=== PATIENT | male | born 1975 | race Caucasian/White ===

== ENCOUNTER 2017-07-09 18:51 | Emergency (ER) | payer OTHER ==
[~2017-07-09] VITALS: Ht 180.3 cm; Wt 105.9 kg
[~2017-07-09 18:51] MED LIST: ACETAMINOPHEN-1 EAC1 PO; AMBIEN10 MG PO; AMLODIPINE BESYL5 MG PO; AMOX TR-K CLV1 EAC4 PO; AUGMENTIN500 MG PO; BACTRIM,SEPT1 TABLET PO; BACTRIM,SEPTRA S1 ML PO; CHILDREN'S MOT120 M2 PO; CHILDREN'S160 MG/22 PO; Children's Advil PO; DURICEF500 MG/5 M PO; GLIPIZIDE10 MG PO; Glucophage PO; Glucotrol PO; KEFLEX500 MG PO; KLONOPIN0.5 M1 PO; Keflex PO; LANTUS 3 M100 UNITS1 SC; LANTUS SOLOSTAR SQ; LEVAQUIN750 MG PO; LISINOPRIL5 MG PO; MILLIPRED DP5 MG PO; NAPROSYN500 MG PO; NOHOMEMEDS; NORCO 5/3251 TABLET PO; NOVOLOG PE100 UNITS/ SC; PEN-VEE K,VEET500 MG PO; Percocet 5/325,Endoc PO; TYLENOL EXTRA500 MG PO; Tylenol Extra Streng PO; VENTOLIN HFA18 GM IH; ZESTRIL10 MG PO; Zestril,Prinivil PO
[2017-07-09 19:28] LABS: BASOPHIL (%) 0.8 % (0-1); CARBON DIOXIDE (BICARBONATE) 26.8 MEQ/L (20-31); EOSINOPHIL (%) 1.6 % (0-5); EOSINOPHIL COUNT 0.1 K/uL (0-0.3); HEMOGLOBIN 15.4 G/DL (12.5-16.6); IMMATURE GRANULOCYTE (%) 0.2 % (0.0-0.7); LYMPHOCYTE (%) 39.5 % (15-42); MCH 30.1 PG (29.0-34.0); MCHC 36.7 G/DL (30.0-36.0); MCV 82.2 FL (86-99); MONOCYTE (%) 5.5 % (3-12); MONOCYTE COUNT 0.3 K/uL (0-0.8); NEUTROPHIL (%) 52.4 % (45-76); NEUTROPHIL COUNT 2.6 K/uL (1.8-6.4); PLATELET COUNT 189 K/uL (156-360); RBC DIS.WIDTH-CV 12.2 % (11.8-14.6); RBC DIS.WIDTH-SD 36.9 % (39-53); RED BLOOD COUNT 5.11 M/uL (4.00-5.50); WHITE BLOOD COUNT 4.9 K/uL (4.1-10.2)
[2017-07-09 19:36] LABS: ALBUMIN 4.2 g/dL (3.2-4.8); CHLORIDE 95 mEq/L (99-109); POTASSIUM 4.5 mEq/L (3.7-5.4); SODIUM 127 mEq/L (136-147)
[2017-07-09 19:38] LABS: TOTAL PROTEIN 7.3 g/dL (6.4-8.3)
[2017-07-09 19:40] LABS: TOTAL BILIRUBIN 0.7 mg/dL (0.0-1.0)
[2017-07-09 19:42] LABS: ALKALINE PHOSPHATASE 100 IU/L (3-129); CREATININE 1.4 mg/dL (0.6-1.3); GFR ESTIMATE (CALCULATED) > 59 mL/min/ (58.99-99999)
[2017-07-09 19:43] LABS: UREA NITROGEN (BUN) 15 mg/dL (9-23)
[2017-07-09 19:44] LABS: AST (GOT) 15 IU/L (2-34)
[2017-07-09 19:45] LABS: ALT (GPT) 24 IU/L (3-49)
[2017-07-09 19:48] LABS: GLUCOSE 761 mg/dL (70-99)
[2017-07-09 20:10] LABS: APPEARANCE CLEAR ((CLEAR)); BILIRUBIN NEGATIVE; BLOOD SMALL; COLOR COLORLESS ((YELLOW)); GLUCOSE (STRIP) >=500; KETONES NEGATIVE; LEUKOCYTES NEGATIVE; NITRITE NEGATIVE; PROTEIN (STRIP) NEGATIVE; SPECIFIC GRAVITY 1.027 (1.000-1.030); UROBILINOGEN 0.2 MG/DL (0.2-1.0)
[2017-07-09 20:13] LABS: BACTERIA NONE SEEN /HPF; EPITHELIAL CELLS RARE /HPF; MUCUS NONE SEEN /LPF; RED BLOOD CELLS 0-5 /HPF (0-5); WHITE BLOOD CELLS 0-5 /HPF (0-5)
[2017-07-09] MEDS ORDERED: LEVAQUIN750 MG PO (22:06)
[2017-07-09 22:43] VITALS: BP 126/76
== END 2017-07-09 22:45 | disposition home or self-care (01) ==
LOC: EME 18:51
PROVIDERS: Emergency Medicine; Physician Assistant
DX: R73.9 Hyperglycemia, unspecified (principal); J20.9 Acute bronchitis, unspecified; I44.0 Atrioventricular block, first degree; R94.31 Abnormal electrocardiogram [ECG] [EKG]; I10 Essential (primary) hypertension; F41.9 Anxiety disorder, unspecified; Z79.4 Long term (current) use of insulin; Z87.01 Personal history of pneumonia (recurrent)
CPT/HCPCS: 71046; 80053; 81003; 82010; 82803; 82948; 85025; 93005; 99281; 99284; J7030

== ENCOUNTER 2017-08-27 23:37 | Emergency (ER) | payer OTHER ==
[~2017-08-27] VITALS: Ht 180.3 cm; Wt 106.8 kg
[2017-08-28] MEDS ORDERED: KETOROLAC TROME10 MG PO (01:16)
[2017-08-28 01:22] VITALS: BP 140/92
== END 2017-08-28 01:22 | disposition home or self-care (01) ==
LOC: EME 23:37
PROC: 2W3EX1Z Immobilization of Right Hand using Splint (ICD-10-PCS; principal; 2017-08-28)
DX: S62.306A Unspecified fracture of fifth metacarpal bone, right hand, initial encounter for closed fracture (principal); W01.0XXA Fall on same level from slipping, tripping and stumbling without subsequent striking against object, initial encounter; Y92.002 Bathroom of unspecified non-institutional (private) residence as the place of occurrence of the external cause
CPT/HCPCS: 73130; 99281; 99283